=== PATIENT | female | born 1995 | race Caucasian/White ===

== ENCOUNTER → 2020-04-05 | Outpatient (CLI) | payer SELFPAY | LOC: LAB 11:20 | DX: J02.9 Acute pharyngitis, unspecified (principal); Z20.828 Contact with and (suspected) exposure to other viral communicable diseases ==

== ENCOUNTER 2020-11-18 12:06 | Emergency (ER) | payer BC ==
[2020-11-18] MEDS ORDERED: PROZAC20 M1 PO (12:34)
[2020-11-18 12:53] LABS: EOS # 0.2 (0.04-0.40); EOS % 2.1 % (1.0-5.0); HEMATOCRIT 43.1 % (37.0-47.0); HEMOGLOBIN 14.4 g/dL (12.5-16.0); LYMPH# 2.2 (1.50-4.00); MEAN CELL VOLUME 85 fl (78-100); MEAN CORPUSCULAR HEMOGLOBIN 28 pg (27-31); MEAN CORPUSCULAR HGB CONC 33 g/dL (33-37); MEAN PLATELET VOLUME 10.3 fl (7.4-10.4); MONO # 0.5 (0.20-0.80); NEU # 5.7 (1.40-6.50); PLATELET COUNT 213 K/mm3 (130-400); RED BLOOD COUNT 5.09 M/mm3 (4.10-5.30); RED CELL DISTRIBUTION WIDTH 12.2 % (11.5-14.5); WHITE BLOOD COUNT 8.6 K/mm3 (4.8-10.8)
[2020-11-18 13:04] LABS: SODIUM 140 mmol/L (136-145)
[2020-11-18 13:05] LABS: CALCIUM 9.1 mg/dL (8.3-10.5)
[2020-11-18 13:06] LABS: GLUCOSE 118 mg/dL (65-105); TOTAL PROTEIN 6.8 g/dL (6.4-8.3)
[2020-11-18 13:07] LABS: CARBON DIOXIDE 26 mmol/L (22-29)
[2020-11-18 13:08] LABS: TOTAL BILIRUBIN 0.3 mg/dL (0.2-1.2)
[2020-11-18 13:12] LABS: AST-SGOT 11 U/L (5-34)
[2020-11-18 13:13] LABS: ALT/SGPT 14 U/L (0-55); LIPASE 18 U/L (8-78)
[2020-11-18 13:40] LABS: TROPONIN-I < 0.03 ng/mL (<0.030)
[2020-11-18 15:29] LABS: URINE APPEARANCE HAZY; URINE BILIRUBIN NEGATIVE (NEGATIVE); URINE BLOOD NEGATIVE (NEGATIVE); URINE COLOR YELLOW; URINE GLUCOSE NEGATIVE (NEGATIVE); URINE KETONE NEGATIVE (NEGATIVE); URINE LEUKOCYTE ESTERASE NEGATIVE (NEGATIVE); URINE NITRATE NEGATIVE (NEGATIVE); URINE PROTEIN(semi-quant) TRACE mg/dL (NEGATIVE); URINE UROBILINOGEN NORMAL (NORMAL); URINE WBC 0-1 /hpf (0-3)
[2020-11-18 16:53] VITALS: BP 112/68
== END 2020-11-18 16:11 | disposition home or self-care (01) ==
LOC: ED 12:06
PROVIDERS: Nurse Practitioner Family
DX: R10.12 Left upper quadrant pain (principal); R91.8 Other nonspecific abnormal finding of lung field; R07.89 Other chest pain; F41.9 Anxiety disorder, unspecified; F17.290 Nicotine dependence, other tobacco product, uncomplicated; Z91.040 Latex allergy status; Z20.822 Contact with and (suspected) exposure to COVID-19
CPT/HCPCS: J7030

== ENCOUNTER 2021-04-08 21:28 | Emergency (ER) | payer BC ==
[~2021-04-08] VITALS: Ht 154.9 cm; Wt 110.7 kg
[~2021-04-08 21:28] MED LIST: PROZAC20 M1 PO
[2021-04-08 22:46] LABS: BASO # 0.02 (0.02-0.10); EOS # 0.14 (0.04-0.40); EOS % 1.4 % (1.0-5.0); HEMATOCRIT 44.2 % (37.0-47.0); HEMOGLOBIN 14.7 g/dL (12.5-16.0); LYMPH# 2.57 (1.50-4.00); MEAN CELL VOLUME 85 fl (78-100); MEAN CORPUSCULAR HEMOGLOBIN 28 pg (27-31); MEAN CORPUSCULAR HGB CONC 33 g/dL (33-37); MEAN PLATELET VOLUME 10.2 fl (7.4-10.4); MONO # 0.46 (0.20-0.80); NEU # 6.52 (1.40-6.50); PLATELET COUNT 237 K/mm3 (130-400); RED BLOOD COUNT 5.19 M/mm3 (4.10-5.30); RED CELL DISTRIBUTION WIDTH 11.6 % (11.5-14.5); WHITE BLOOD COUNT 9.7 K/mm3 (4.8-10.8)
[2021-04-08 22:54] LABS: POTASSIUM 4.3 mmol/L (3.5-5.1); SODIUM 140 mmol/L (136-145)
[2021-04-08 22:55] LABS: CALCIUM 9.8 mg/dL (8.3-10.5)
[2021-04-08 22:56] LABS: GLUCOSE 114 mg/dL (65-105)
[2021-04-08 22:57] LABS: CARBON DIOXIDE 25 mmol/L (22-29)
[2021-04-08 22:58] LABS: TOTAL BILIRUBIN 0.2 mg/dL (0.2-1.2)
[2021-04-08 23:00] LABS: D-DIMER 0.42 mg/L FEU (0.15-0.50)
[2021-04-08 23:02] LABS: AST-SGOT 15 U/L (5-34)
[2021-04-08 23:03] LABS: ALT/SGPT 15 U/L (0-55)
[2021-04-08 23:10] LABS: TROPONIN-I < 0.03 ng/mL (<0.030)
[2021-04-08 23:42] VITALS: BP 129/65
== END 2021-04-08 23:42 | disposition home or self-care (01) ==
LOC: ED 21:28
PROVIDERS: Physician Assistant
DX: R07.89 Other chest pain (principal); R19.7 Diarrhea, unspecified; R11.0 Nausea; F41.9 Anxiety disorder, unspecified; F32.9 Major depressive disorder, single episode, unspecified; Z87.891 Personal history of nicotine dependence; Z79.899 Other long term (current) drug therapy
CPT/HCPCS: J1885

== ENCOUNTER → 2021-04-23 | Outpatient (CLI) | payer BC | LOC: RAD 13:07 | DX: M25.572 Pain in left ankle and joints of left foot (principal) ==

== ENCOUNTER → 2021-05-22 | Outpatient (CLI) | payer BC | LOC: LAB 16:21 | DX: Z20.822 Contact with and (suspected) exposure to COVID-19 (principal) ==

== ENCOUNTER → 2021-06-26 | Outpatient (CLI) | payer BC ==
[2021-06-26 14:44] LABS: URINE WBC 0 /hpf (0-3)
[2021-06-26 15:12] LABS: URINE APPEARANCE CLOUDY; URINE COLOR YELLOW; URINE PROTEIN(semi-quant) TRACE mg/dL (NEGATIVE)
[2021-06-26 15:13] LABS: URINE BILIRUBIN NEGATIVE (NEGATIVE); URINE BLOOD NEGATIVE (NEGATIVE); URINE GLUCOSE NEGATIVE (NEGATIVE); URINE KETONE NEGATIVE (NEGATIVE); URINE LEUKOCYTE ESTERASE NEGATIVE (NEGATIVE); URINE NITRATE NEGATIVE (NEGATIVE); URINE UROBILINOGEN NORMAL (NORMAL)
== END ==
LOC: LAB 11:46
PROVIDERS: Nurse Practitioner
DX: R30.9 Painful micturition, unspecified (principal)

== ENCOUNTER 2021-11-12 06:26 | Emergency (ER) | payer BC ==
[~2021-11-12] VITALS: Ht 167.6 cm; Wt 113.5 kg
[2021-11-12 06:40] VITALS: BP 143/90
[2021-11-12 07:17] LABS: BASO # 0.03 K/mm3 (0.02-0.10); EOS # 0.16 K/mm3 (0.04-0.40); EOS % 1.6 % (1.0-5.0); HEMATOCRIT 40.4 % (37.0-47.0); HEMOGLOBIN 13.8 g/dL (12.5-16.0); LYMPH# 2.73 K/mm3 (1.50-4.00); MEAN CELL VOLUME 83 fl (78-100); MEAN CORPUSCULAR HEMOGLOBIN 28 pg (27-31); MEAN CORPUSCULAR HGB CONC 34 g/dL (33-37); MEAN PLATELET VOLUME 10.3 fl (7.4-10.4); NEU # 6.46 K/mm3 (1.40-6.50); PLATELET COUNT 215 K/mm3 (130-400); RED BLOOD COUNT 4.87 M/mm3 (4.10-5.30); RED CELL DISTRIBUTION WIDTH 11.9 % (11.5-14.5); WHITE BLOOD COUNT 9.9 K/mm3 (4.8-10.8)
[2021-11-12 07:34] LABS: ALBUMIN 3.9 g/dL (3.5-5.0); POTASSIUM 3.9 mmol/L (3.5-5.1)
[2021-11-12 07:36] LABS: CALCIUM 9.3 mg/dL (8.3-10.5)
[2021-11-12 07:37] LABS: TOTAL PROTEIN 6.6 g/dL (6.4-8.3)
[2021-11-12 07:39] LABS: TOTAL BILIRUBIN 0.3 mg/dL (0.2-1.2)
== END 2021-11-12 07:57 | disposition home or self-care (01) ==
LOC: ED 06:26
PROVIDERS: Physician Assistant
DX: R07.89 Other chest pain (principal); Z91.040 Latex allergy status

== ENCOUNTER → 2023-04-22 | Outpatient (CLI) | payer BC | LOC: RAD 07:45 | DX: E04.9 Nontoxic goiter, unspecified (principal) ==